=== PATIENT | female | born 1940 | race Caucasian/White ===

== ENCOUNTER 2017-07-21 14:25 | Inpatient (IN) ==
[2017-07-21] MEDS ORDERED: ACETAMINOPHEN 325 MG TABLET PO PRN (15:40)
[2017-07-21] MEDS ORDERED: GUAIFENESIN/P-EPHED 600 MG/60 MG TAB (12HR) PO SCH (15:45)
--- NOTE | 2017-07-21 15:46 | IRU History & Physical Report ---
HPI IRU Date: 542 Chief complaint: I'm weak HPI: Ms. Hercules is a pleasant although somewhat confused 77-year-old female referred by Chencho Diaz MD from [facility] on [address] in [place]. Her primary care doctor is Varun Stout MD in [place]. She lives in [place], [place]. History was attempted from the patient but she is unable to give very detailed information. She apparently had fallen at home landing on her left knee and hip. When I asked her about the fall, she could not really tell me much about it. She thinks she simply lost her balance. Radiographs reportedly were negative. However she had been down on the floor for several hours at the time of admission to [facility]. Admission date was 07/07/2017. She was noted to have hypoxemia but had not been using oxygen at home. She was also noted to have pneumonia possibly related to aspiration. I do not have a report as to the location of the pneumonia in her lungs. She was diagnosed with severe sepsis secondary to a pulmonary source. She was noted to have acute hypoxemic respiratory failure. She required mechanical ventilation and was intubated on but self extubated on 07/12/2017. She was noted to have acute metabolic encephalopathy as well as diabetes mellitus. At home she was on oral agents possibly including glipizide and metformin. Her hemoglobin A1c at the time of admission to [facility] was 11.5%. Patient was also noted to have a UTI. She was treated with several antibiotics including azithromycin, ceftriaxone, cefepime and vancomycin for these infections including her pneumonia. She is no longer on antibiotic. I do not have specific information as to organism recovered if any was. She was noted to have a lesion in the left kidney measuring 3.4 cm as well as several noncalcified pulmonary nodules in the right lung measuring 7-8 mm. Pulmonology recommended follow-up CT scan in 3 months. Patient did undergo fiberoptic bronchoscopy on a therapeutic basis for mucus plugging on 07/11/2017. An echocardiogram was done demonstrating concentric left hypertrophy, diastolic dysfunction and an ejection fraction of 60%. A pleural effusion was felt to be present. Because of her severe illness with pneumonia and severe sepsis as well as her intubation etc., she was noted to have evidence of critical illness myopathy. She requires maximum assistance for walking. She was evaluated by physical therapy, occupational therapy and speech therapy at [facility]. Speech therapy evaluated her and recommended a mechanical soft diet with honey thickened liquids. The patient states that she lives alone in her home home but does have good family support. She does not use any assistive devices. There are no stairs in her home. Prior to admission to [facility] she was reportedly independent or modified independent for all activities. Her current level of functioning is as follows: She is supervision level for eating, minimal assistance for grooming, moderate assistance for bathing, minimal assistance for upper body dressing and moderate assistance for lower body dressing. She is minimal assistance for toileting and bed/chair/wheelchair transfers. She is minimal assistance for toilet transfers but maximum assistance for walking. She uses a rolling walker and walks 100 feet. Her memory is poor. She requires cues more than 75% of the time. She has a very unsteady balance. She is impulsive based on previous evaluations but perhaps is improved. Her mental status is variable. At times she seems to be fairly well oriented. She does note that this is July and that the president is Justin Simmons. However at times she seems to be confused and frequently looks around the room during the interview. She seemed to not be focusing terribly well during the interview. The following medical conditions are noted and require active monitoring and/or management: 1. Diabetes Mellitus Type II on insulin: This is not controlled based on A1c of 11%. She is now on insulin but I do not think she was on this at home. She is at risk for hyperglycemia or hypoglycemia in view of energy requirements involved in her rehabilitation and resuming her independent living. 2. Critical illness myopathy 3. Dysphagia: She was assessed by speech therapy and noted to have dysphagia. She is at risk for aspiration and worsening respiratory function. 4. Acute hypoxemic respiratory failure, on supplemental oxygen: She did not use oxygen at home. It is not clear how long she has been hypoxemic. She requires supplemental oxygen at the present time and is at risk for further hypoxemia as well as mental status changes related to low oxygen. 5. Hypokalemia: She will require close monitoring of her potassium and magnesium. 6. Hypomagnesemia 7. Pulmonary nodules: She does have some noncalcified pulmonary nodules which are nonspecific. Follow-up CT scan is recommended in 3 months. 8. Recent pneumonia: She does not have current evidence of active pneumonia. However she is at risk for recurrence in view of her debilitated status, possible underlying COPD etc. The following therapies will be needed: 1. Physical therapy: for transfers and ambulation and stairs. 2. Occupational therapy: for ADL's and transfers. 3. Speech Therapy: to address dysphagia and aspiration risk 4. Dietitian: To work on nutrition in view of her diabetes mellitus which is not controlled. 5. Medical management: for the above conditions. 6. 24 hour Rehabilitation Nursing to monitor and address the following: Blood sugars, reduce risk of fall risk, monitor oxygen saturations PFS 1. Diabetes mellitus type 2 former on oral agents, not controlled. Currently on insulin. 2. Benign essential hypertension. 3. Hypoxemic respiratory failure with possible underlying COPD 4. Chronic heavy tobacco use 5. Recent pneumonia with severe sepsis Surgical History: Tonsillectomy and adenoidectomy as a child Family History: Patient's father age 64 from "heart attack." Mother age 89 from " heart attack". She has one sister who is healthy. She has 2 children who are reportedly healthy. - Social History Smoking status: Heavy tobacco smoker Packs per day: 2 Packs-years: 116 (started smoking at age 19 and continued up until this admission) Quit date: 07/07/17 Time spent discussing smoking cessation with patient: 3 to 10 minutes Substance use type: does not use Alcohol intake: former Housing: house Household members: none Does patient use chewing tobacco?: No Social history: Patient states she is a . Her worked in construction and several years ago. She reportedly has good family support. Review of Systems - Constitutional Constitutional: Present: anorexia, weight loss. Absent: chills, fatigue, fever( s), headache(s), lethargy, malaise, night sweats, weakness, weight gain - EENMT Eyes: Absent: blurry vision, change in vision, diplopia Mouth/Throat: Absent: changes in swallowing, painful swallowing, change in taste , bleeding gums, change in voice - Cardiovascular Cardiovascular: Present: dyspnea on exertion. Absent: chest pain, palpitations , syncope, orthopnea, edema, cyanosis, heart murmur Rhythm: Present: regular rhythm Vascular: Absent: intermittent claudication, pedal edema, unilateral swelling - Respiratory Respiratory: Present: cough, dyspnea. Absent: hemoptysis, dyspnea on exertion, wheezing, pain on inspiration, chest congestion, excessive phlegm production - Gastrointestinal Gastrointestinal: Present: constipation. Absent: abdominal pain, change in bowel habits, diarrhea, dyspepsia, dysphagia, early satiety, hematochezia, melena, nausea, vomiting - Musculoskeletal Musculoskeletal: Present: arthralgias (left knee is painful since the fall she states). Absent: abnormal gait, back pain, joint swelling, limited range of motion, muscle weakness, myalgias - Integumentary/Breasts Integumentary: Absent: alopecia, erythema, lesions, pruritus, rash, jaundice - Neurological Neurological: Present: memory loss. Absent: abnormal gait, abnormal movements, abnormal speech, confusion, convulsions, dizziness, focal weakness, frequent falls, headache(s), loss of vision, numbness, paresthesias, tremor(s) - Psychiatric Psychiatric: Absent: abnormal sleep pattern, anxiety, depression - Endocrine Endocrine: Absent: cold intolerance, flushing, heat intolerance, palpitations - Hematologic/Lymphatic Hematologic/Lymphatic: Absent: easy bleeding, easy bruising, lymphadenopathy - Allergic/Immunologic Allergic/Immunologic: Absent: urticaria Medications Home Medications Medication Instructions Recorded Confirmed Type Acetaminophen 650 mg PO Q6H PRN 07/21/17 07/21/17 History Amlodipine [Norvasc] 10 mg PO DAILY 07/21/17 07/21/17 History Carvedilol [Coreg] 1 tab PO BIDWM 07/21/17 07/21/17 History Furosemide [Lasix] 1 tab PO DAILY 07/21/17 07/21/17 History Guaifenesin/Pseudoephedrne HCl 1 each PO Q12H 07/21/17 07/21/17 History [Mucinex D ER Tablet] Insulin Detemir [Levemir] 15 unit SQ HS 07/21/17 07/21/17 History Insulin Lispro [Humalog] 0 unit SQ SS PRN 07/21/17 07/21/17 History Insulin Lispro [Humalog] 10 unit SQ TIDWM 07/21/17 07/21/17 History Lisinopril [Zestril] 40 mg PO DAILY 07/21/17 07/21/17 History Nicotine Patch [Nicoderm] 14 mg TD DAILY 07/21/17 07/21/17 History Potassium Chloride [K-Dur] 1 tab PO WB 07/21/17 07/21/17 History Allergies Allergy/AdvReac Type Severity Reaction Status Date / Time No Known Allergies Allergy Verified 07/21/17 15:00 Results IRU - Labs Labs: I reviewed outside records from [facility]. Exam - Constitutional Present: no acute distress, well nourished, well developed, average body habitus , disheveled, cooperative - Routine HEENT Exam Head: Present: normocephalic, atraumatic. Absent: cushingoid faces, abrasion, laceration, hematoma Eye: Present: EOMI, PERRL. Absent: conjunctival icterus, scleral injection, periorbital swelling, nystagmus ENT: Present: mucous membranes moist, oropharynx clear Comments: Has poor dentition with several missing teeth and teeth are in somewhat poor condition - Routine Neck Exam Present: supple, full ROM, trachea midline. Absent: lymphadenopathy, thyromegaly, tenderness, swelling - Routine Chest/Breast/Axilla Exam Chest wall: Absent: tenderness, mass Axillae: Absent: lymphadenopathy, mass - Routine Respiratory Exam Present: decreased breath sounds, CTA bilaterally. Absent: accessory muscle use , prolonged expiratory phase, rales, respiratory distress, rhonchi, stridor, wheezes, crackles, distant breath sounds - Routine Cardiovascular Exam Present: RRR, S1, S2, no murmur. Absent: gallop, S3, S4, click, irregular rhythm - Routine Abdominal Exam Present: soft, normoactive bowel sounds, non distended, non tender. Absent: rebound, guarding, firm, rigid, organomegaly, mass, hernia, wound - Routine Extremities Exam Present: no edema, non tender, pulses intact, normal capillary refill. Absent: cyanosis, clubbing - Routine Back/Spine/Pelvis Exam Back/Spine: Present: full ROM. Absent: scoliosis, kyphosis - Routine Skin Exam Present: intact, dry, warm. Absent: cyanosis, erythema, pallor, mottling, petechiae, urticaria, lesions, jaundice - Routine Neurological Exam Present: alert, oriented X3, CN II-XII intact, motor deficit (has reasonably good distal motor function but proximal muscles are weak particularly at the hips and shoulders.), moving all extremities, normal speech. Absent: sensory deficit Today, she seems to know where she is. She knows who the president is and the current month. - Routine Psychiatric Exam Present: normal affect, normal thought process, cooperative. Absent: good insight, good judgment, depressed, anxious Sepsis Assessment - Evaluation Confirmed Suspected Infection: No SIRS Criteria: none IRU A/P (1) Critical illness myopathy Current visit: Yes Status: Acute This is based on her recent severe illness with severe sepsis, intubation and extubation as well as physical examination demonstrating proximal muscle weakness. She will require an intensive individualized program of physical therapy and occupational therapy to return her to her previous independent level of functioning. (2) Diabetes mellitus type 2, insulin dependent Current visit: Yes Status: Chronic Her A1c is 11%. She has been on oral agents previously and is now on insulin. We will involve the dietitian as well as CDE for further education and management etc. (3) Acute hypoxemic respiratory failure Current visit: Yes Status: Acute She continues to require supplemental oxygen. Her lungs sound clear at the present time. (4) Anemia Qualifiers: Anemia type: unspecified type Qualified Code(s): D64.9 - Anemia, unspecified Current visit: Yes Status: Acute Her hemoglobin has been running around 10 g percent. We will monitor this. We will check iron studies as well. (5) Benign essential hypertension Current visit: Yes Status: Chronic Blood pressures were reportedly quite high upon admission to [facility] (around 190) . We will monitor this closely and adjust medications as needed. DVT Prophylaxis: SCD's, Lovenox - Course Hospital Course: Krish Godfrey MD: - Interventions to Obtain Goals PT Treatment Plan: Balance/Proprioception, Functional Activities, Gait Training , Patient/Family Education OT Treatment Plan: ADL (Basic Care), Balance Training, IADL, Pt./Family Education Goals Progress/Modifications: This patient has multiple functional deficits which will be addressed by occupational therapy, physical therapy and speech therapy. She will require an interdisciplinary approach via medical management, 24 rehabilitation nursing along with the therapies described.
--- NOTE | 2017-07-21 16:30 | IRU 24Hr Post Admit Eval ---
24 Hr Post Admission Physical - Relevant Changes Relevant Changes: No Reviewed: I have reviewed the patient's information and concur with the finding and results of the pre-admission screen. Certification: I certify the patient for rehabilitation. - Patient Condition (1) Critical illness myopathy Status: Acute Code(s): G72.81 - Critical illness myopathy Classification: Present on IRF Admission, IRF Tx That Should Address Diagnosis, Diagnosis Requiring Medical Follow Up (2) Diabetes mellitus type 2, insulin dependent Status: Chronic Code(s): E11.9 - Type 2 diabetes mellitus without complications; Z79.4 - penitentiary (current) use of insulin Classification: Present on IRF Admission, IRF Tx That Should Address Diagnosis, Diagnosis Requiring Medical Follow Up (3) Acute hypoxemic respiratory failure Status: Acute Code(s): J96.01 - Acute respiratory failure with hypoxia Classification: Present on IRF Admission, IRF Tx That Should Address Diagnosis, Diagnosis Requiring Medical Follow Up (4) Anemia Status: Acute Qualifiers: Anemia type: unspecified type Qualified Code(s): D64.9 - Anemia, unspecified Code(s): D64.9 - Anemia, unspecified Classification: Present on IRF Admission, IRF Tx That Should Address Diagnosis, Diagnosis Requiring Medical Follow Up (5) Benign essential hypertension Status: Chronic Code(s): I10 - Essential (primary) hypertension Classification: Present on IRF Admission, IRF Tx That Should Address Diagnosis, Diagnosis Requiring Medical Follow Up - Prior Functional Status Lives With: Alone Residence Type: Apartment/Private Home Assitive Devices: None Prior Functional Status: Indep. at home or school - Current Functional Status Current Level of Function: Her current level of functioning is as follows: She is supervision level for eating, minimal assistance for grooming, moderate assistance for bathing, minimal assistance for upper body dressing and moderate assistance for lower body dressing. She is minimal assistance for toileting and bed/chair/wheelchair transfers. She is minimal assistance for toilet transfers but maximum assistance for walking. She uses a rolling walker and walks 100 feet. Her memory is poor. She requires cues more than 75% of the time. She has a very unsteady balance. She is impulsive based on previous evaluations but perhaps is improved. Failed Alternative Therapy: Arrived from Acute Care Patient Requirements: The patient requires oversight by rehabilitation physician to manage their rehabilitation treatment plan and multidisciplinary approach to care that can only be provided in an IRF and requires a multidisciplinary approach to care, provided by professional PTs, OTs, STs, dieticians, RTs, rehabilitation nurses and is not available in lesser levels of care. Limitations Req: Mobility Impairment, ADL Impairment, Respiratory Impairment, Cognitive Impairment Therapy: The patient is to receive therapy at least [address] Treatment Plan: Swallow Retraining/Exercises, Swallow Precautions, Modified Diet, Cognitive Linguistic Tx ST Treatment Plan Frequency: Three Times Per Week ST Treatment Plan Duration: Two Weeks Plan of Care Comment: Physical therapy: 75 minutes 3 days weekly, 90 minutes 2 days weekly. Occupational therapy: 75 minutes 3 days weekly, 90 minutes 2 days weekly. Speech therapy: 30 minutes 3 days weekly ROM Deficit: Left Lower Extremity - Complications/Comorbidities Impact on Functional Outcomes: Her left knee pain as well as her respiratory failure and cognitive dysfunction will all likely impact her functional outcome. Barriers to Discharge: Weakness, Endurance, Comprehension, Pain Control, Medical Limitation - Plan to Avoid Complications Plan to Avoid Complications: The patient cannot receive this care in a lesser intensive setting such as Longterm or Outpatient Therapy due to the patient requiring the following : Close monitoring of her blood sugars as she is newly on insulin, monitoring of oxygen saturations and evidence of recurrence of pneumonia/infection, reduce fall risk in terms of her cognition and impulsive behavior. .
[2017-07-21 16:43] VITALS: BMI 26.6
--- NOTE | 2017-07-21 16:44 | Consult Note ---
<SaschaTreva D - Last Filed: 07/21/17 17:20> Consult Information - Data of Consult Consult date: 07/21/17 Requesting Physician: Krish Godfrey MD - Consult Narrative Reason for consult: DM2; Hypoxia; electrolyte disturbances History of present illness: "Solange Hercules is a 77 y/o lady who was admitted to [facility] on 07/21/17 following acute hospitalization at [facility]. She was hospitalized from 07/07/17-07/21/17. Her recollection of the entire illness is very limited - hx was gleaned from chart. Reportedly she fell at home on 07/07/17 and may have been on the floor for 2 hours. She was admitted to [facility] with severe sepsis secondary to pneumonia, suspect aspiration. While she has a 58 year smoking hx, she's never required supplemental oxygen. However, she had resp failure requiring intubation/mech ventilation, though she self-extubated by the following day (). She underwent therapeutic bronchoscopy with suctioning of mucus plugs on 07/11/17 - neg for malignancy, fungal, pneumonitis, and AFB. An Echo showed an EF of 60% with moderately concentric LVH and grade 1 LV diastolic dysfunction. BC were neg; Urine strep/legionella were neg; Vresp was neg. She was treated with multiple antibiotics including azithro, ceftriaxone, cefepime, and vanco and per notes, abx were narrowed to unasyn. She also was noted to have dysphagia and was encephalopathic. BP was markedly high requiring IV hydralazine in addition to linisopril, coreg, and norvasc. Hgb A1c was noted to be quite high at 11.5% - metformin was held but she was on Levemir BID and mealtime insulin + ADA diet. Imaging studies included hip XR (neg), head CT/MRI (mild to mod diffuse atrophy & mod microangiography), CXR (left pneumonia; nodule in mid-right lung; sm left pleural effusion); L elbow XR (neg). She was eval by PT/OT who recommended ongoing IP therapy and they did not feel like she was safe to return home. Marylin complains of left knee pain - from what her family has told her, she thinks she fell on it. She has problems extending her knee b/c of it. She denies feeling SOA but is on supplemental O2. She has a cough but reports that it's improving. She frequently pulls up the blanket around her - she's chilled in her room, otherwise denies fever or sweating. She denies congestion, headaches, or sore throat. She denies chest pain, dizziness, or syncope. She feels weak in general. She denies any abd pain or n/v, but has been a bit bloated. No constipation/diarrhea. She denies dysuria but has a hx of incontinence. She states that occ her right ankle swells up. No rashes. She sometimes has a tendency to bruise/bleed easily. Her goal is to return back to her apt. in [place] with her dog, "Toughy". PFSH Anemia Benign essential hypertension CHF, diastolic (Jun 2017: EF of 60% with moderately concentric LVH and grade 1 LV diastolic dysfunction) Left kidney lesion 3.4 cm (renal u/s in Jun 2017 showed simple renal cysts b/l) Right pulm nodule measuring 7-[address] in Jun 2017 Vit D deficiency Dysphagia Surgical History: Tonsillectomy and adenoidectomy as a child Family History: Father - at age 64 of heart attack. Mother also of a heart attack at age 89. Sister is healthy. Her two children are healthy. - Social History Smoking status: Current every day smoker (started smoking at age 19) Packs per day: 2 Substance use type: does not use Alcohol intake frequency: former alcohol drinker Current occupational status: retired (housewife) Current residence: Apartment/Private Home (lives with her dog) Review of Systems All systems PM: 10-point ROS was reviewed, no additional remarkable complaints except - Constitutional Constitutional: Present: chills, weakness. Absent: fever(s) - EENMT Eyes: Absent: change in vision Nose: Absent: obstruction Mouth/Throat: Absent: sore throat, changes in swallowing, painful swallowing - Cardiovascular Cardiovascular: Absent: chest pain, palpitations, syncope Vascular: Present: pedal edema (occasionally to right ankle) - Respiratory Respiratory: Present: cough (improving). Absent: dyspnea - Gastrointestinal Gastrointestinal: Absent: abdominal pain, constipation, diarrhea, nausea, vomiting - Genitourinary Genitourinary: Present: urinary incontinence (chronic). Absent: urinary frequency - Musculoskeletal Musculoskeletal: Present: arthralgias (left knee). Absent: back pain - Integumentary/Breasts Integumentary: Present: wounds (left lower leg) - Neurological Neurological: Present: abnormal gait (d/t weakness), confusion, weakness - Psychiatric Psychiatric: Absent: anxiety - Hematologic/Lymphatic Hematologic/Lymphatic: Present: easy bruising (sometimes) - Allergic/Immunologic Allergic/Immunologic: Absent: seasonal rhinorrhea Medications Home Medications Medication Instructions Recorded Confirmed Type Acetaminophen 650 mg PO Q6H PRN 07/21/17 07/21/17 History Amlodipine [Norvasc] 10 mg PO DAILY 07/21/17 07/21/17 History Carvedilol [Coreg] 1 tab PO BIDWM 07/21/17 07/21/17 History Furosemide [Lasix] 1 tab PO DAILY 07/21/17 07/21/17 History Guaifenesin/Pseudoephedrne HCl 1 each PO Q12H 07/21/17 07/21/17 History [Mucinex D ER Tablet] Insulin Detemir [Levemir] 15 unit SQ HS 07/21/17 07/21/17 History Insulin Lispro [Humalog] 0 unit SQ SS PRN 07/21/17 07/21/17 History Insulin Lispro [Humalog] 10 unit SQ TIDWM 07/21/17 07/21/17 History Lisinopril [Zestril] 40 mg PO DAILY 07/21/17 07/21/17 History Nicotine Patch [Nicoderm] 14 mg TD DAILY 07/21/17 07/21/17 History Potassium Chloride [K-Dur] 1 tab PO WB 07/21/17 07/21/17 History Allergies Allergy/AdvReac Type Severity Reaction Status Date / Time No Known Allergies Allergy Verified 07/21/17 15:00 Exam - Constitutional Present: no acute distress, well nourished, well developed - Routine HEENT Exam Head: Present: normocephalic Eye: Present: PERRL. Absent: conjunctival icterus, scleral injection ENT: Present: mucous membranes dry, oropharynx clear. Absent: dentition normal (missing teeth; some caries noted) - Routine Neck Exam Present: supple. Absent: lymphadenopathy - Routine Respiratory Exam Present: CTA bilaterally, diminished air movement (bases) - Routine Cardiovascular Exam Present: RRR, S1, S2 - Routine Abdominal Exam Present: non tender, distended (mild). Absent: normoactive bowel sounds ( hypoactive) - Routine Extremities Exam Present: no edema, pulses intact, joint swelling (left knee effusion with tenderness to medial joint line) - Routine Skin Exam Present: intact, dry, warm, wounds (healing abrasions to left lower ext.) - Routine Neurological Exam Present: alert, oriented X3, CN II-XII intact (grossly), moving all extremities , vision grossly intact, hearing grossly intact, normal speech. Absent: facial asymmetry, tremors - Routine Psychiatric Exam Present: normal affect, normal thought process, cooperative Assessment and Plan (1) Critical illness myopathy Current visit: Yes Status: Acute Assessment and Plan: IMPRESSION Myopathy Recent hospitalization for severe sepsis; Pneumonia (suspect aspiration), acute hypoxic resp failure requiring intubation, acute metabolic encephalopathy, UTI, hypokalemia/hypomagnesemia, normocytic anemia, left kdiney lesion 3.4 cm, noncalcified pulm nodules in right lung (7-8 mm); thrombocytosis Uncontrolled type 2 DM - hgb A1c at [facility] was 11.5% Benign essential hypertension CHF, diastolic (Jun 2017: EF of 60% with moderately concentric LVH and grade 1 LV diastolic dysfunction) Left kidney lesion 3.4 cm (renal u/s in Jun 2017 showed simple renal cysts b/l) Right pulm nodule measuring 7-[address] in Jun 2017 Vit D deficiency Dysphagia PLAN Agree w/ orders per attending, Dr. Godfrey. Recent resp failure requiring intubation/mech ventilation, s/p bronchoscopy - currently on low-flow O2 - wean as able. Encourage smoking cessation. Dysphasia diet with soft foods and honey thick liquid. Agree with ST consult. Monitor electrolytes - recent low K & mg. Also on Lasix/KDur. HTN with recent HTN urgency - cont norvasc, coreg, lasix, lisinopril. DM2, uncontrolled - monotir BGM; continue Levemir & NovoLog; consider re- introducing Metformin (pt was on this prior to acute hospitalization). PT/OT consults to address acute critical illness myopathy. Monitor hgb & plt - had mild anemia (11.) and thrombocytosis (536) at [facility] on 07/17. K on 07/18 was 3.8; cr 0.7 She will require outpt f/u for pulm nodule with repeat CT scan by 10/2017. Thank you for this consult. We will follow Marylin along with you during her stay in IRU. [facility] records were reviewed. D/W Dr. Gill. DVT Prophylaxis: Lovenox Resuscitation Status: Full Code Hospital Course Summary Disclaimer: The visit summary below is not to be considered part of the above Progress Note. Hospital Course: IMPRESSION Myopathy Recent hospitalization for severe sepsis; Pneumonia (suspect aspiration), acute hypoxic resp failure requiring intubation, acute metabolic encephalopathy, UTI, hypokalemia/hypomagnesemia, normocytic anemia, left kdiney lesion 3.4 cm, noncalcified pulm nodules in right lung (7-8 mm); thrombocytosis Uncontrolled type 2 DM - hgb A1c at [facility] was 11.5% Benign essential hypertension CHF, diastolic (Jun 2017: EF of 60% with moderately concentric LVH and grade 1 LV diastolic dysfunction) Left kidney lesion 3.4 cm (renal u/s in Jun 2017 showed simple renal cysts b/l) Right pulm nodule measuring 7-[address] in Jun 2017 Vit D deficiency Dysphagia PLAN Agree w/ orders per attending, Dr. Godfrey. Recent resp failure requiring intubation/mech ventilation, s/p bronchoscopy - currently on low-flow O2 - wean as able. Encourage smoking cessation. Dysphasia diet with soft foods and honey thick liquid. Agree with ST consult. Monitor electrolytes - recent low K & mg. Also on Lasix/KDur. HTN with recent HTN urgency - cont norvasc, coreg, lasix, lisinopril. DM2, uncontrolled - monotir BGM; continue Levemir & NovoLog; consider re- introducing Metformin (pt was on this prior to acute hospitalization). PT/OT consults to address acute critical illness myopathy. Monitor hgb & plt - had mild anemia (11.) and thrombocytosis (536) at [facility] on 07/17. K on 07/18 was 3.8; cr 0.7 She will require outpt f/u for pulm nodule with repeat CT scan by 10/2017. Thank you for this consult. We will follow Marylin along with you during her stay in IRU. [facility] records were reviewed. D/W Dr. Gill. <Sangita Gill - Last Filed: 07/21/17 20:12> Consult Information - Data of Consult Requesting Physician: Krish Godfrey MD [facility] Patient Stated Medical History Hypertension Yes Pneumonia Yes Diabetes Mellitus Type 2 Yes Constipation Yes Hx Incontinence Yes Clinic Medical History Critical illness myopathy (Acute Medical) Diabetes mellitus type 2, insulin dependent (Chronic Medical) Acute hypoxemic respiratory failure (Acute Medical) Anemia (Acute Medical) Benign essential hypertension (Chronic Medical) Exam Vital Signs: Temperature 98.4 F 07/21/17 14:59 Pulse Rate 66 07/21/17 14:59 Respiratory Rate 20 07/21/17 14:59 Blood Pressure 122/59 07/21/17 14:59 Pulse Oximetry 96 07/21/17 14:59 Height/Weight/BMI: Height 1.7 m Weight 77.1 kg Body Mass Index 26.6 Results - ABG Interpretation ABG results: 07/21/17 19:46 ABG pH 7.490 H ABG pCO2 40 ABG pO2 69 L ABG HCO3 31 H ABG Total CO2 31.7 H ABG O2 Saturation 95.0 ABG Base Excess 6.6 H Assessment and Plan (1) Critical illness myopathy Current visit: Yes Status: Acute Assessment and Plan: 07/21/2017-I reviewed this chart, the patient history, and the DISASTER DIRECTOR's/PA's documented findings as above. We discussed and formulated the assessment and plan as above with the additions below.-Dr. Gill I came to see the patient this evening after she had supper. She was sleeping and somewhat difficult to arouse. She denies any pain. She denies any shortness of breath. She is on 2 L of oxygen. I spoke with her nurse today who received report from [facility]. She has been on 2 L of oxygen for several days and they have not been able to wean her off. She is also been confused at times at [facility]. This evening she is somnolent but arousing more. She denies any complaints. Her nurse states she was more awake earlier in the day and ate supper and talked with family. On exam this evening she is drowsy but arousable. HEENT reveals sclerae to be anicteric and pupils are equal. Oropharynx is moist. Neck is supple. Chest is clear to auscultation. Cardiac vascular reveals a regular rate and rhythm. Abdomen is soft and nontender. Extremities are free of edema. Stat ABG was obtained and pH is 7.49, PCO2 40, PO2 is 69 on 2 L. We'll check a CBC and basic metabolic profile tomorrow. We'll need to monitor blood pressure and diabetes closely. Continue PT and OT for strengthening. Consult speech therapy regarding dysphasia. Start breathing treatments and incentive spirometer regarding hypoxia and probable COPD Hospital Course Summary Disclaimer: The visit summary below is not to be considered part of the above Progress Note. Addendum entered and electronically signed by Treva Caicedo APRN 07/21/17 17: 29: Left knee effusion - check Left knee xray.
[2017-07-21] MEDS ORDERED: FALL RISK - PHARMACY CONSULT XX ONE (16:48)
--- OUTSIDE RECORDS SUMMARY | 2017-07-21 17:16 | External Medical Summary ---
:1940 Author Organization [facility] Address [address] [place] [address] Care Team Providers Name Role Phone Moise Stout Unavailable Unavailable PROBLEMS Type Condition ICD9-CM Code [id number] Code Onset Condition SNOMED Code Dates Status Problem Type 2 diabetes E11.8 Active 32338183 mellitus with complication, without long-term current use of insulin Problem Essential I10 Active 53243495 hypertension ALLERGIES No Known Allergies SOCIAL HISTORY No smoking Hx information available PLAN OF CARE VITAL SIGNS MEDICATIONS Medication Instructions Dosage Frequency Start End Date Duration Status Date Doxycycline Orally Twice a 1 capsule 12h 23 January, 10 days Active Hyclate 100 MG day 2016 Metformin HCl Orally Twice a 1 tablet 12h 2 days Active 850 MG day with meals RESULTS No Results PROCEDURES No Known procedures IMMUNIZATIONS No Known Immunizations
--- OUTSIDE RECORDS SUMMARY | 2017-07-21 17:16 | External Medical Summary ---
:1940 Author Organization [facility] Address [address] [place] [address] Care Team Providers Name Role Phone Moise Stout Unavailable Unavailable PROBLEMS Type Condition ICD9-CM Code [id number] Code Onset Condition SNOMED Code Dates Status Problem Type 2 diabetes E11.8 Active 09493096 mellitus with complication, without long-term current use of insulin Problem Essential I10 Active 84705373 hypertension ALLERGIES Substance Reaction Event Type Date Status N.K.D.A. Unknown Non Drug Allergy January, Unknown SOCIAL HISTORY No smoking Hx information available PLAN OF CARE Activity Details Follow Up 2 - 3 Days Reason: VITAL SIGNS Weight 164.8 lbs 2017-02-06 Height 67 in 2017-02-06 Heart Rate 118 /min 2017-02-06 BMI 25.81 kg/m2 2017-02-06 Blood pressure systolic 184 mm Hg 2017-02-06 Blood pressure diastolic 92 mm Hg 2017-02-06 MEDICATIONS Medication Instructions Dosage Frequency Start End Date Duration Status Date Doxycycline Orally Twice a 1 capsule 12h 04 February, 10 days Active Hyclate 100 MG day 2016 Metformin HCl Orally Twice a 2 tablets 12h 30 days Active 500 MG day Atenolol 50 MG Orally Once a 1 tablet 24h 30 days Active day Enalapril Orally Once a 1 tablet 24h 30 days Active Maleate 20 mg day RESULTS Name Result Date Reference Range Aerobic Bacterial Culture #[id number] PROCEDURES Procedure Date Ordered Related Diagnosis Body Site OFFICE VISITEST PT February 06, 2017 AEROBIC CULTURE February 06, 2017 IMMUNIZATIONS No Known Immunizations
--- OUTSIDE RECORDS SUMMARY | 2017-07-21 17:16 | External Medical Summary ---
:1940 Author Organization [facility] Address [address] [place] [address] Care Team Providers Name Role Phone Moise Stout Unavailable Unavailable PROBLEMS Type Condition ICD9-CM Code [id number] Code Onset Condition SNOMED Code Dates Status Problem Type 2 diabetes E11.8 Active 69954677 mellitus with complication, without long-term current use of insulin Problem Essential I10 Active 13155807 hypertension ALLERGIES Substance Reaction Event Type Date Status N.K.D.A. Unknown Non Drug Allergy January, Unknown SOCIAL HISTORY No smoking Hx information available PLAN OF CARE Activity Details Follow Up 2 - 3 Days Reason: VITAL SIGNS Weight 168.6 lbs 2017-01-22 Height 67 in 2017-01-22 Heart Rate 109 /min 2017-01-22 BMI 26.40 kg/m2 2017-01-22 Blood pressure systolic 154 mm Hg 2017-01-22 Blood pressure diastolic 89 mm Hg 2017-01-22 MEDICATIONS Medication Instructions Dosage Frequency Start End Date Duration Status Date Enalapril Orally Once a day 1 tablet 24h Active Maleate 10 MG Metformin HCl Orally Twice a 1 tablet 12h Active 500 MG day with meals Atenolol 50 MG Orally Once a day 1 tablet 24h Active RESULTS No Results PROCEDURES Procedure Date Ordered Related Diagnosis Body Site OFFICE VISIT NEW PT January 22, 2017 IMMUNIZATIONS No Known Immunizations
--- OUTSIDE RECORDS SUMMARY | 2017-07-21 17:16 | External Medical Summary ---
:1940 Author Organization [facility] Address [address] [place] [address] Care Team Providers Name Role Phone Moise Stout Unavailable Unavailable PROBLEMS Type Condition ICD9-CM Code TUU17-TT Code Onset Condition SNOMED Code Dates Status Problem Type 2 diabetes E11.8 Active 69813421 mellitus with complication, without long-term current use of insulin Problem Essential I10 Active 83693152 hypertension ALLERGIES Substance Reaction Event Type Date Status N.K.D.A. Unknown Non Drug Allergy January, Unknown SOCIAL HISTORY No smoking Hx information available PLAN OF CARE Activity Details Follow Up 2 - 3 Days Reason: VITAL SIGNS Weight 164.2 lbs 2017-02-04 Height 67 in 2017-02-04 Heart Rate 125 /min 2017-02-04 BMI 25.71 kg/m2 2017-02-04 Blood pressure systolic 165 mm Hg 2017-02-04 Blood pressure diastolic 96 mm Hg 2017-02-04 MEDICATIONS Medication Instructions Dosage Frequency Start End Date Duration Status Date Enalapril Orally Once a 1 tablet 24h Active Maleate 20 MG day Doxycycline Orally Twice a 1 capsule 12h 04 February, 10 days Active Hyclate 100 MG day 2016 Metformin HCl Orally Twice a 1 tablet 12h Active 850 MG day with meals Atenolol 50 MG Orally Once a 1 tablet 24h Active day RESULTS Name Result Date Reference Range COMPREHENSIVE CHEM PROFILE 2017-02-04 GLUCOSE 412 60-99 BUN 16 8-23 CREATININE 0.7 0.4-1.1 eGFR If Am 99 >60 eGFR If Non Am 82 >60 TOTAL BILI 0.40 0.00-1.00 SODIUM 136 133-145 POTASSIUM 4.6 3.3-5.1 CHLORIDE 95 96-108 CO2 24 23-31 CALCIUM 10.1 8.7-10.3 AST/SGOT 10 5-40 ALT/SGPT 12 5-40 ALK PHOS 93 34-114 TOTAL PROTEIN 7.6 5.9-8.4 ALBUMIN 4.3 3.2-5.2 GLOBULIN 3.3 2.0-4.4 LIPID PROFILE 2017-02-04 CHOLESTEROL 284 50-200 TRIGLYCERIDE 237 30-150 HDL-DIRECT 46 45-65 LDL-DIRECT 206 0-99 CHOL/HDL 6.2 4.0-6.7 HbA1C 2017-02-04 %A1C 12.3 4.0-6.0 Microalbumin/Creat Ratio 2017-02-04 PROCEDURES Procedure Date Ordered Related Diagnosis Body Site COMP PROFILE February 04, 2017 LIPID PROFILE February 04, 2017 MICROALBUMIN URINE February 04, 2017 HgB A1C February 04, 2017 OFFICE VISITEST PT February 04, 2017 CREATININE; OTHER SOURCE February 04, 2017 IMMUNIZATIONS No Known Immunizations
--- OUTSIDE RECORDS SUMMARY | 2017-07-21 17:16 | External Medical Summary ---
:[address] [facility] Address [address] [place] [address] Care Team Providers Name Role Phone Moise Stout Unavailable Unavailable PROBLEMS Type Condition ICD9-CM Code [id number] Code Onset Condition SNOMED Code Dates Status Problem Type 2 diabetes E11.8 Active 69189556 mellitus with complication, without long-term current use of insulin Problem Essential I10 Active 27330412 hypertension ALLERGIES Substance Reaction Event Type Date Status N.K.D.A. Unknown Non Drug Allergy January, Unknown SOCIAL HISTORY No smoking Hx information available PLAN OF CARE Activity Details Follow Up prn Reason: VITAL SIGNS Weight 166.8 lbs 2017-01-24 Height 67 in 2017-01-24 Heart Rate 114 /min 2017-01-24 BMI 26.12 kg/m2 2017-01-24 Blood pressure systolic 183 mm Hg 2017-01-24 Blood pressure diastolic 94 mm Hg 2017-01-24 MEDICATIONS Medication Instructions Dosage Frequency Start End Date Duration Status Date Enalapril Orally Once a day 1 tablet 24h Active Maleate 20 MG Atenolol 50 MG Orally Once a day 1 tablet 24h Active Metformin HCl Orally Twice a 1 tablet 12h Active 850 MG day with meals RESULTS No Results PROCEDURES Procedure Date Ordered Related Diagnosis Body Site OFFICE VISITEST PT January 24, 2017 IMMUNIZATIONS No Known Immunizations
--- OUTSIDE RECORDS SUMMARY | 2017-07-21 17:16 | External Medical Summary ---
:1940 Author Organization [facility] Address [address] [place] [address] Care Team Providers Name Role Phone Moise Stout Unavailable Unavailable PROBLEMS Type Condition ICD9-CM Code WAM26-DQ Code Onset Condition SNOMED Code Dates Status Problem Type 2 diabetes E11.8 Active 35922462 mellitus with complication, without long-term current use of insulin Problem Essential I10 Active 55456443 hypertension ALLERGIES Unknown Allergies SOCIAL HISTORY No smoking Hx information available PLAN OF CARE VITAL SIGNS MEDICATIONS Medication Instructions Dosage Frequency Start End Date Duration Status Date Metformin HCl Orally Twice a 2 tablets 12h 30 days Active 500 mg day RESULTS No Results PROCEDURES No Known procedures IMMUNIZATIONS No Known Immunizations
[2017-07-21] MEDS: INSULIN ASPART 100unit/ml INJECTION SQ SCH (17:44)
[2017-07-21] MEDS: CARVEDILOL 25 MG TABLET PO SCH (17:44)
[2017-07-21] MEDS: GUAIFENESIN/P-EPHED 600 MG/60 MG TAB (12HR) PO SCH (21:08)
[2017-07-21] MEDS: INSULIN DETEMIR 100unit/ml INJECTION SQ SCH (21:08)
[2017-07-22] MEDS: ALBUTEROL/IPRATROPIUM 2.5mg-0.5mg/3ml NEB AEROSOL SCH ×4 (05:25→17:11)
[2017-07-22] MEDS: CARVEDILOL 25 MG TABLET PO SCH ×2 (08:27→17:30)
[2017-07-22] MEDS: GUAIFENESIN/P-EPHED 600 MG/60 MG TAB (12HR) PO SCH ×2 (08:27→20:14)
[2017-07-22] MEDS: LISINOPRIL 40 MG TABLET PO SCH (08:31)
[2017-07-22] MEDS: AMLODIPINE 10 MG TABLET PO SCH (08:31)
[2017-07-22] MEDS: FUROSEMIDE 40 MG TABLET PO SCH (08:31)
[2017-07-22] MEDS: INSULIN ASPART 100unit/ml INJECTION SQ SCH ×3 (08:42→17:31)
[2017-07-22] MEDS: ENOXAPARIN 40 MG/0.4 ML INJECTION SQ SCH (08:42)
[2017-07-22] MEDS ORDERED: NICOTINE PATCH REMOVAL TD SCH (09:00)
[2017-07-22] MEDS ORDERED: NICOTINE 14 MG PATCH TD SCH (09:00)
[2017-07-22] MEDS ORDERED: NICOTINE 14 MG PATCH TD PRN (11:17)
[2017-07-22] MEDS ORDERED: NICOTINE PATCH REMOVAL TD PRN (11:17)
--- NOTE | 2017-07-22 11:23 | IRU Progress Note ---
- Subjective/Serverity of Illness Marylin was evaluated in her room on the inpatient rehabilitation unit. Has significant pain in the left knee which is impeding her progress. Today when I interviewed her, she continues to be disinterested and looks in various directions. She is awake and will answer questions but is not terribly engaged. Today, her daughter was with her and she had several questions which we discussed with regarding her stay at [facility]. Patient denies any cough at the present time. She does have some dyspnea with activity. Again the main issue is the left leg it seems as though. Update on medical conditions we are monitoring and managin. Diabetes Mellitus Type II on insulin: Continues to run too high at over 200. Hospitalists are managing and we appreciate their input. 2. Critical illness myopathy: When I initially evaluated her she demonstrated weakness of the legs upon flexion and extension at the hips. We are pending formal physical therapy evaluation who saw her this morning. 3. Dysphagia: Her daughter had several questions about her dysphagia as to the etiology and whether this will improve. I told her at this time that we did not know if it would improve but we were hopeful that it would. I explained that we are concerned about the risk of aspiration. 4. Acute hypoxemic respiratory failure, on supplemental oxygen: On room air this morning she was 80%. Rapidly came up with administration of 1-2 L of oxygen. ABGs are reviewed. PO2 69. This is on 2 L. I would anticipate the need for overnight oximetry prior to going home. 5. Hypokalemia: Potassium slightly low at 3.5. 6. Hypomagnesemia 7. Pulmonary nodules: She does have some noncalcified pulmonary nodules which are nonspecific. Follow-up CT scan is recommended in 3 months. 8. Recent pneumonia: Continues to be afebrile and the lungs actually sound fairly clear with diminished breath sounds. 9. Malnutrition: Patient had reported some weight loss but we do not know how much. In addition her prealbumin is low at 10. Has evidence for at least moderate if not severe protein calorie malnutrition. Exam Vital Signs: Temperature 99.1 F 07/22/17 08:00 Pulse Rate 71 07/22/17 08:00 Respiratory Rate 18 07/22/17 10:20 Blood Pressure 130/57 07/22/17 08:00 Pulse Oximetry 97 07/22/17 10:20 Height/Weight/BMI: Height 1.7 m Weight 77.1 kg Body Mass Index 26.6 Comments: The patient is awake, alert and oriented and in no acute distress. Pupils are equal. The neck is supple. Chest: Clear to auscultation bilaterally with diminished breath sounds bilaterally. I do not hear any crackles or wheezes at present. Cor: RR with no gallop, click nor murmur Abd: soft with normo-active bowel sounds. There are no masses, no tenderness and no guarding. Extremities: Left knee is inspected and palpated. Has reduced range of motion. It is minimally warm but not overtly so. No wounds are present. She does have an effusion. Radiograph of the left knee is reviewed. To my eye is fairly unremarkable but we will await official radiology interpretation. Results IRU - Labs Labs: Reviewed labs and ABGs. Has mild hypoxemia on 2 L. Is not retaining CO2 at present. Potassium 3.5. Reviewed radiograph of left knee. - ABG Interpretation ABG results: 07/21/17 19:46 ABG pH 7.490 H ABG pCO2 40 ABG pO2 69 L ABG HCO3 31 H ABG Total CO2 31.7 H ABG O2 Saturation 95.0 ABG Base Excess 6.6 H IRU A/P (1) Critical illness myopathy Current visit: Yes Status: Acute We are awaiting official physical therapy assessment. However does have proximal muscle weakness in the lower extremities based on my exam yesterday. (2) Diabetes mellitus type 2, insulin dependent Current visit: Yes Status: Chronic Her blood sugars are running a bit high. She is on insulin. Appreciate hospitalists input in this regard. (3) Acute hypoxemic respiratory failure Current visit: Yes Status: Acute Continues to require supplemental oxygen. Her saturations are around 80% on room air. Seems to be adequately controlled at about 2 L by nasal cannula. She will require exercise oximetry and overnight oximetry prior to dismissal. (4) Anemia Qualifiers: Anemia type: unspecified type Qualified Code(s): D64.9 - Anemia, unspecified Current visit: Yes Status: Acute Workup of anemia is in progress. We'll check iron studies as well as stool for occult blood. Those are pending at present. (5) Benign essential hypertension Current visit: Yes Status: Chronic (6) Protein-calorie malnutrition, moderate Current visit: Yes Status: Acute Has evidence for at least moderate if not severe protein calorie malnutrition based on prealbumin of 10. In addition she reports she has lost weight although we are not certain how much. Dietitian is consulted in this regard. DVT Prophylaxis: Lovenox Resuscitation Status: Full Code - Course Hospital Course: Krish Godfrey MD: 07/22/17 11:27 Patient is rather complex. Pulmonary hale she seems to be stable but his hypoxemic without supplemental oxygen. Saturations down to 80% on room air. She does have protein calorie malnutrition based on low. Albumin. Dietitian is consulted. Anemia workup in progress. She is just getting started with therapies and appears to be cooperative. Left knee appears to be the main issue of pain. Radiograph reviewed and looks fairly unremarkable to me. May require orthopedic evaluation to rule out internal derangement. - Interventions to Obtain Goals PT Treatment Plan: Balance/Proprioception, Functional Activities, Gait Training , Patient/Family Education OT Treatment Plan: ADL (Basic Care), Balance Training, IADL, Pt./Family Education Goals Progress/Modifications: Time spent with patient and on floor reviewing data and documentin min. Barriers to dismissal: Cognition, left knee pain, endurance Medical decision-making: Has a new diagnosis of protein calorie malnutrition based on weight loss, anemia and low prealbumin. Dietitian is consulted. Has left knee pain which is quite debilitating for her. I reviewed the radiograph and it does show some degenerative changes but nothing too remarkable to my eye. We will await official interpretation. She may require orthopedic evaluation in this regard. She does have evidence of significant hypoxemia without oxygen supplementation and this may play a role in her cognition as well. Her blood sugars are running a bit high. We will work with the hospitalists with regard to blood sugar control, assessment and treatment of the left knee pain and continue therapy at the present time. In addition, her anemia workup is in progress with stool for occult blood and iron studies pending.
--- NOTE | 2017-07-22 12:38 | XRay Report ---
Indication: Right knee effusion s/p fall PROCEDURE: XR knee RT 3V: Encounter: Initial Comparison: None Findings: There is no acute fracture, dislocation or malalignment identified. Severe lateral patellofemoral joint space narrowing. Mild meniscal chondrocalcinosis. Impression: No acute osseous abnormality. .
--- NOTE | 2017-07-22 12:40 | XRay Report ---
Indication: Lt knee effusion S/P fall PROCEDURE: XR knee LT 3V: Encounter: Initial Comparison: None Findings: There is no acute fracture, dislocation or malalignment identified. Moderate lateral patellar joint space narrowing with lateral patellar tilting. Moderate to large joint effusion. Impression: No acute acute fracture seen. Moderate to large joint effusion raising some concern for an occult fracture. CT could be performed for further evaluation as clinically indicated. .
--- NOTE | 2017-07-22 13:36 | IRU Plan of Care ---
U Overall Plan of Care - Date Date: 07/22/17 - Patient Impairments (1) Critical illness myopathy Code(s): G72.81 - Critical illness myopathy Status: Acute Classification: Present on IRF Admission, IRF Tx That Should Address Diagnosis, Diagnosis Requiring Medical Follow Up (2) Diabetes mellitus type 2, insulin dependent Code(s): E11.9 - Type 2 diabetes mellitus without complications; Z79.4 - detention (current) use of insulin Status: Chronic Classification: Present on IRF Admission, IRF Tx That Should Address Diagnosis, Diagnosis Requiring Medical Follow Up (3) Acute hypoxemic respiratory failure Code(s): J96.01 - Acute respiratory failure with hypoxia Status: Acute Classification: Present on IRF Admission, IRF Tx That Should Address Diagnosis, Diagnosis Requiring Medical Follow Up (4) Anemia Qualifiers: Anemia type: unspecified type Qualified Code(s): D64.9 - Anemia, unspecified Code(s): D64.9 - Anemia, unspecified Status: Acute Classification: Present on IRF Admission, IRF Tx That Should Address Diagnosis, Diagnosis Requiring Medical Follow Up (5) Benign essential hypertension Code(s): I10 - Essential (primary) hypertension Status: Chronic Classification: Present on IRF Admission, IRF Tx That Should Address Diagnosis, Diagnosis Requiring Medical Follow Up (6) Protein-calorie malnutrition, moderate Code(s): E44.0 - Moderate protein-calorie malnutrition Status: Acute Classification: Present on IRF Admission, IRF Tx That Should Address Diagnosis, Diagnosis Requiring Medical Follow Up - Relevant Changes Relevant Changes: No Reviewed: I have reviewed the patient's information and concur with the finding and results of the pre-admission screen. Certification: I certify the patient for rehabilitation. - Medical Prognosis Medical Prognosis: Good Vital Signs: Last Vital Signs Temp 99.1 F 07/22/17 08:00 Pulse 71 07/22/17 08:00 Resp 18 07/22/17 13:22 BP 130/57 07/22/17 08:00 Pulse Ox 97 07/22/17 10:20 - Anticipated Interventions Anticipated Interventions: The patient requires inpatient IRF care for PT, OT, and/or ST for residuals remaining from pneumonia and sepsis resulting in muscular weakness and strength deficits. An individualized overall plan of care has been developed after careful review of the patient's preadmission screening, post admission physician evaluation and assessments of all therapy disciplines and/or other pertinent clinicians involved in treating the patient. This indicates medical necessity and rehabilitation necessity have been established through a thorough review of all available medical information. ROM Deficit: Left Lower Extremity Strength Deficits: Left Lower Extremity - Current Functional Status Failed Alternative Therapy: Arrived from Acute Care Patient Requires: The patient requires oversight by rehabilitation physician to manage their rehabilitation treatment plan and multidisciplinary approach to care that can only be provided in an IRF and requires a multidisciplinary approach to care, provided by professional PTs, OTs, STs, rehabilitation nurses, and may require STs, dieticians, and RTS. This is not available in lesser levels of care. Therapy: The patient is to receive therapy at least [address] Treatment Plan: Swallow Retraining/Exercises, Swallow Precautions, Modified Diet ST Treatment Plan Duration: One Week ST Treatment Plan Frequency: Five Times Per Week Plan of Care Comment: COMPLETE SWALLOW RETRAINING PROGRAM. Comments: Physical therapy: 75 minutes 3 days weekly, 90 minutes 2 days weekly Occupational therapy: 75 minutes 3 days weekly, 90 minutes 2 days weekly Speech therapy: 30 minutes 3 days weekly - Anticipated LOS/Outcomes Anticipated Functional Outcome: Expected functional improvements include: -- Modified independant to independant ambulation with or without assistive device -- Modified independant to independant ADL's with or without assistive device -- Return to pre-morbid level of mobility -- Maximize level of mobility and ADL's to decrease burden on any caregiver involved with this patient's care Anticipated Length of Stay (days): 10 Anticipated DC Destination: Home, Self Care, Home Health Service Home Safety Plan: The patient will be provided with the development of a Home Safety Plan for return to a home or home-like environment and and to ensure safety post discharge. - Plan to Avoid Complications Barriers to Attaining Goals: Weakness, Endurance, Comprehension, Pain Control, Medical Limitation Plan to Avoid Complications: The patient cannot receive this care in a lesser intensive setting such as Longterm or Outpatient Therapy due to the patient requiring the following : Close monitoring of patient's oxygen saturations, pain management in view of the left knee pain and interventions to reduce fall risk and risk of readmission. The patient requires a multidisciplinary coordinated approach to allow her to return to modified independent level of functioning..
--- NOTE | 2017-07-22 13:51 | Progress Note ---
Progress Note: Susan continues to complain of left knee pain since the fall prior to admission. There is an effusion. Reviewed plain films demonstrating effusion only. Discussed with Daphnie with the hospitalist service and we will pursue a CT scan to rule out fracture.
--- NOTE | 2017-07-22 15:46 | CT Scan Report ---
Indication: fall prior to admission; pain; effusion PROCEDURE: CT knee LT wo con: Encounter: Initial Comparison: Left knee radiographs from today Technique: Axial noncontrast CT of the left knee was performed with coronal and sagittal two-dimensional reformats. Three-dimensional surface shaded volume imaging was also created and reviewed. Automated Exposure Control and Iterative Reconstruction dose reducing techniques were utilized. Findings: Large knee joint effusion is again seen. This is simple fluid is not a lipoma hemarthrosis. There is a moderate sized Jackson's cyst. There is lateral and posterior subcutaneous edema. Muscular attenuation is within normal limits. No focal hematoma. Mild medial and lateral meniscal chondrocalcinosis with mild tricompartmental osteoarthritis. Mild bony demineralization. Impression: No acute fracture. Large joint effusion with mild tricompartmental osteoarthritis. .
[2017-07-22] MEDS: INSULIN DETEMIR 100unit/ml INJECTION SQ SCH (20:40)
[2017-07-23] MEDS: ALBUTEROL/IPRATROPIUM 2.5mg-0.5mg/3ml NEB AEROSOL SCH ×4 (05:29→19:49)
[2017-07-23] MEDS: INSULIN ASPART 100unit/ml INJECTION SQ SCH ×3 (08:36→17:44)
[2017-07-23] MEDS: ENOXAPARIN 40 MG/0.4 ML INJECTION SQ SCH (08:36)
[2017-07-23] MEDS: FUROSEMIDE 40 MG TABLET PO SCH (08:36)
[2017-07-23] MEDS: CARVEDILOL 25 MG TABLET PO SCH ×2 (08:36→17:43)
[2017-07-23] MEDS: AMLODIPINE 10 MG TABLET PO SCH (08:37)
[2017-07-23] MEDS: LISINOPRIL 40 MG TABLET PO SCH (08:37)
[2017-07-23] MEDS: GUAIFENESIN/P-EPHED 600 MG/60 MG TAB (12HR) PO SCH ×2 (08:37→20:37)
[2017-07-23] MEDS: IBUPROFEN 400 MG TABLET PO SCH ×2 (12:14→17:43)
[2017-07-23] MEDS: FAMOTIDINE 20 MG TABLET PO SCH (12:14)
--- NOTE | 2017-07-23 13:53 | Progress Note ---
- Date 07/23/17 Objective Vital signs: Temperature 98.5 F 07/23/17 08:35 Pulse Rate 71 07/23/17 08:35 Respiratory Rate 16 07/23/17 12:45 Blood Pressure 120/52 07/23/17 08:35 Pulse Oximetry 98 07/23/17 08:35 Height/Weight/BMI: Height 1.7 m Weight 77.1 kg Body Mass Index 26.6 Results - Labs CBC & Chem 7: 07/22/17 04:35 07/22/17 04:35 - ABG Interpretation ABG results: 07/21/17 19:46 ABG pH 7.490 H ABG pCO2 40 ABG pO2 69 L ABG HCO3 31 H ABG Total CO2 31.7 H ABG O2 Saturation 95.0 ABG Base Excess 6.6 H Assessment and Plan (1) Critical illness myopathy Current visit: Yes Status: Acute Assessment and Plan: Assessment: Myopathy Recent hospitalization for severe sepsis; Pneumonia (suspect aspiration), acute hypoxic resp failure requiring intubation, acute metabolic encephalopathy, UTI, hypokalemia/hypomagnesemia, normocytic anemia, left kidney lesion 3.4 cm, noncalcified pulm nodules in right lung (7-8 mm); thrombocytosis Uncontrolled type 2 DM - hgb A1c at [facility] was 11.5% Benign essential hypertension CHF, diastolic (Jun 2017: EF of 60% with moderately concentric LVH and grade 1 LV diastolic dysfunction) Left kidney lesion 3.4 cm (renal u/s in Jun 2017 showed simple renal cysts b/l) Right pulm nodule measuring 7-[address] in Jun 2017 Vit D deficiency Dysphagia Plan: ~Resume metformin which she was taking prior to hospitalization. Will follow sugars and adjust insulin as needed. Consider increasing her Levemir, but will hold off on doing that since we are initiating the metformin. ~Start Niferex and Vit C for iron deficiency. ~Start Vit D given her dx of Vitamin D deficiency Hospital Course Summary Disclaimer: The visit summary below is not to be considered part of the above Progress Note. Hospital Course: IMPRESSION Myopathy Recent hospitalization for severe sepsis; Pneumonia (suspect aspiration), acute hypoxic resp failure requiring intubation, acute metabolic encephalopathy, UTI, hypokalemia/hypomagnesemia, normocytic anemia, left kdiney lesion 3.4 cm, noncalcified pulm nodules in right lung (7-8 mm); thrombocytosis Uncontrolled type 2 DM - hgb A1c at [facility] was 11.5% Benign essential hypertension CHF, diastolic (Jun 2017: EF of 60% with moderately concentric LVH and grade 1 LV diastolic dysfunction) Left kidney lesion 3.4 cm (renal u/s in Jun 2017 showed simple renal cysts b/l) Right pulm nodule measuring 7-[address] in Jun 2017 Vit D deficiency Dysphagia PLAN Agree w/ orders per attending, Dr. Godfrey. Recent resp failure requiring intubation/mech ventilation, s/p bronchoscopy - currently on low-flow O2 - wean as able. Encourage smoking cessation. Dysphasia diet with soft foods and honey thick liquid. Agree with ST consult. Monitor electrolytes - recent low K & mg. Also on Lasix/KDur. HTN with recent HTN urgency - cont norvasc, coreg, lasix, lisinopril. DM2, uncontrolled - monotir BGM; continue Levemir & NovoLog; consider re- introducing Metformin (pt was on this prior to acute hospitalization). PT/OT consults to address acute critical illness myopathy. Monitor hgb & plt - had mild anemia (11.) and thrombocytosis (536) at [facility] on 07/17. K on 07/18 was 3.8; cr 0.7 She will require outpt f/u for pulm nodule with repeat CT scan by 10/2017. Thank you for this consult. We will follow Marylin along with you during her stay in IRU. [facility] records were reviewed. D/W Dr. Gill.
--- NOTE | 2017-07-23 13:55 | IRU Progress Note ---
- Subjective/Serverity of Illness Marylin continues to complain of left knee pain. There is an effusion present. CT scan reviewed and indicates effusion plus degenerative changes only. Patient was advised. Her oxygen requirements are variable. At times she seems to get by nicely on room air with good saturations and other times she needs supplementation. Update on items requiring active monitoring and/or management: 1. Diabetes Mellitus Type II on insulin: Her blood sugars remain elevated. Hospitalists are monitoring. 2. Critical illness myopathy: She is cooperative with therapy. Cognition is an impairment. She is improving but does have significant muscle weakness. 3. Dysphagia: Remains on modified diet. No evidence of recurrent aspiration. 4. Acute hypoxemic respiratory failure, on supplemental oxygen: Her oxygen requirements are variable. At times she is adequately oxygenating on room air. At times she does need supplemental oxygen. She will need or and oximetry plus exercise oximetry prior to going home. 5. Hypokalemia: She is on supplemental potassium at 20 mEq daily. 6. Hypomagnesemia 7. Pulmonary nodules: This is not a current active problem but will require follow-up CT of the chest in about 3 months. 8. Recent pneumonia: Lungs sound clear. Denies cough. Does have some easy fatigability but no evidence of recurrent pneumonia. 9. Left knee injury and pain and: CT was negative for acute trauma except for the effusion. No fracture noted. Patient was advised. I asked if she has a history of peptic ulcer disease and she does not she states. Her creatinine is normal. We will start ibuprofen on a regular basis along with Pepcid. Exam Vital Signs: Temperature 98.5 F 07/23/17 08:35 Pulse Rate 71 07/23/17 08:35 Respiratory Rate 16 07/23/17 12:45 Blood Pressure 120/52 07/23/17 08:35 Pulse Oximetry 98 07/23/17 08:35 Height/Weight/BMI: Height 1.7 m Weight 77.1 kg Body Mass Index 26.6 Comments: The patient is awake, alert. She is in a good mood and is joking. Uncertain degree of orientation at present. She is in no distress with the exception of the left knee. Pupils are equal. The neck is supple. Chest: Clear to auscultation bilaterally. Her lung sounds are diminished bilaterally. Cor: RR with no gallop, click nor murmur Abd: soft with normo-active bowel sounds. There are no masses, no tenderness and no guarding. Extremities: No edema is present although there is an effusion involving the left knee.. Results IRU - Labs Labs: Reviewed labs. Reviewed CT scan. - ABG Interpretation ABG results: 07/21/17 19:46 ABG pH 7.490 H ABG pCO2 40 ABG pO2 69 L ABG HCO3 31 H ABG Total CO2 31.7 H ABG O2 Saturation 95.0 ABG Base Excess 6.6 H IRU A/P (1) Critical illness myopathy Current visit: Yes Status: Acute Marylin is improving with therapy. Continues to demonstrate significant muscle weakness in the proximal muscles but is improving in this regard. (2) Diabetes mellitus type 2, insulin dependent Current visit: Yes Status: Chronic Blood sugars are in general running too high. Hospitalist service is following and adjusting. (3) Acute hypoxemic respiratory failure Current visit: Yes Status: Acute Her submental oxygen needs are variable. Prior to dismissal we will need to do overnight oximetry and exercise oximetry. (4) Anemia Qualifiers: Anemia type: unspecified type Qualified Code(s): D64.9 - Anemia, unspecified Current visit: Yes Status: Acute (5) Benign essential hypertension Current visit: Yes Status: Chronic (6) Protein-calorie malnutrition, moderate Current visit: Yes Status: Acute DVT Prophylaxis: Lovenox Resuscitation Status: Full Code - Course Hospital Course: Krish Godfrey MD: 07/22/17 11:27 Patient is rather complex. Pulmonary hale she seems to be stable but his hypoxemic without supplemental oxygen. Saturations down to 80% on room air. She does have protein calorie malnutrition based on low. Albumin. Dietitian is consulted. Anemia workup in progress. She is just getting started with therapies and appears to be cooperative. Left knee appears to be the main issue of pain. Radiograph reviewed and looks fairly unremarkable to me. May require orthopedic evaluation to rule out internal derangement. 07/23/17 14:41 Left knee is continuing to be an impediment to her progress. CT of knee showed effusion and degenerative changes only but no fracture. Does not have history of peptic ulcer disease and her creatinine is normal; we will therefore start ibuprofen. - Interventions to Obtain Goals PT Treatment Plan: Balance/Proprioception, Functional Activities, Gait Training , Patient/Family Education, Therapeutic Exercise OT Treatment Plan: ADL (Basic Care), Balance Training, IADL, Pt./Family Education Goals Progress/Modifications: Time spent with patient and on floor reviewing data and documentin min Barriers to dismissal: Cognition, endurance, strength, left knee pain Medical decision-making: I reviewed her left knee situation. She continues to have an effusion. Knee is slightly warm but does not appear to be infected. CT was done in this is reviewed. Shows effusion plus degenerative changes but no fracture. She does not have history of known peptic ulcer disease nor renal failure and we will therefore start ibuprofen and monitor carefully.
--- NOTE | 2017-07-23 14:31 | Progress Note ---
- Date 07/23/17 Subjective: Patient is seen napping in bed after lunch. She reports her knee is better today. She is off O2. She feels that her breathing is fine. Her BS was >300 prior to lunch. Her metformin which she was taking pre-hospital has not been restarted yet. Bowels are moving. No complaints. Objective Vital signs: Temperature 98.5 F 07/23/17 08:35 Pulse Rate 71 07/23/17 08:35 Respiratory Rate 16 07/23/17 12:45 Blood Pressure 120/52 07/23/17 08:35 Pulse Oximetry 98 07/23/17 08:35 Height/Weight/BMI: Height 1.7 m Weight 77.1 kg Body Mass Index 26.6 - Constitutional Present: no acute distress, well nourished, well developed - Routine Respiratory Exam Present: CTA bilaterally. Absent: wheezes - Routine Cardiovascular Exam Present: RRR. Absent: murmur - Routine Abdominal Exam Present: soft, normoactive bowel sounds, non distended. Absent: tenderness - Routine Extremities Exam Present: no edema (to feet or ankles), normal capillary refill Comments: L knee effusion with some tenderness. No redness. - Routine Skin Exam Present: dry, warm - Routine Neurological Exam Present: alert, normal speech - Routine Lymphatic Exam Lymphatic: Absent: adenopathy - Routine Psychiatric Exam Present: normal affect, cooperative Results - Labs CBC & Chem 7: 07/22/17 04:35 07/22/17 04:35 - ABG Interpretation ABG results: 07/21/17 19:46 ABG pH 7.490 H ABG pCO2 40 ABG pO2 69 L ABG HCO3 31 H ABG Total CO2 31.7 H ABG O2 Saturation 95.0 ABG Base Excess 6.6 H Assessment and Plan (1) Critical illness myopathy Current visit: Yes Status: Acute Assessment and Plan: Assessment: Myopathy Recent hospitalization for severe sepsis; Pneumonia (suspect aspiration), acute hypoxic resp failure requiring intubation, acute metabolic encephalopathy, UTI, hypokalemia/hypomagnesemia, normocytic anemia, left kidney lesion 3.4 cm, noncalcified pulm nodules in right lung (7-8 mm); thrombocytosis Uncontrolled type 2 DM - hgb A1c at [facility] was 11.5% Benign essential hypertension CHF, diastolic (Jun 2017: EF of 60% with moderately concentric LVH and grade 1 LV diastolic dysfunction) Left kidney lesion 3.4 cm (renal u/s in Jun 2017 showed simple renal cysts b/l) Right pulm nodule measuring 7-[address] in Jun 2017 Vit D deficiency Dysphagia Plan: ~Resume metformin which she was taking prior to hospitalization. Will follow sugars and adjust insulin as needed. Consider increasing her Levemir, but will hold off on doing that since we are initiating the metformin. ~Start Niferex and Vit C for iron deficiency. ~Start Vit D given her dx of Vitamin D deficiency. ~Continue thickened liquids to prevent aspiration. Hospital Course Summary Disclaimer: The visit summary below is not to be considered part of the above Progress Note. Hospital Course: IMPRESSION Myopathy Recent hospitalization for severe sepsis; Pneumonia (suspect aspiration), acute hypoxic resp failure requiring intubation, acute metabolic encephalopathy, UTI, hypokalemia/hypomagnesemia, normocytic anemia, left kdiney lesion 3.4 cm, noncalcified pulm nodules in right lung (7-8 mm); thrombocytosis Uncontrolled type 2 DM - hgb A1c at [facility] was 11.5% Benign essential hypertension CHF, diastolic (Jun 2017: EF of 60% with moderately concentric LVH and grade 1 LV diastolic dysfunction) Left kidney lesion 3.4 cm (renal u/s in Jun 2017 showed simple renal cysts b/l) Right pulm nodule measuring 7-[address] in Jun 2017 Vit D deficiency Dysphagia PLAN Agree w/ orders per attending, Dr. Godfrey. Recent resp failure requiring intubation/mech ventilation, s/p bronchoscopy - currently on low-flow O2 - wean as able. Encourage smoking cessation. Dysphasia diet with soft foods and honey thick liquid. Agree with ST consult. Monitor electrolytes - recent low K & mg. Also on Lasix/KDur. HTN with recent HTN urgency - cont norvasc, coreg, lasix, lisinopril. DM2, uncontrolled - monotir BGM; continue Levemir & NovoLog; consider re- introducing Metformin (pt was on this prior to acute hospitalization). PT/OT consults to address acute critical illness myopathy. Monitor hgb & plt - had mild anemia (11.) and thrombocytosis (536) at [facility] on 07/17. K on 07/18 was 3.8; cr 0.7 She will require outpt f/u for pulm nodule with repeat CT scan by 10/2017. Thank you for this consult. We will follow Marylin along with you during her stay in IRU. [facility] records were reviewed. D/W Dr. Gill.
[2017-07-23] MEDS: IRON POLYSACCHARIDE COMPLEX 150 MG CAPSULE PO SCH (17:43)
[2017-07-23] MEDS: METFORMIN 500 MG TABLET PO SCH (17:43)
[2017-07-23] MEDS: ASCORBIC ACID 500 MG TABLET PO SCH (17:43)
[2017-07-23] MEDS: INSULIN DETEMIR 100unit/ml INJECTION SQ SCH (20:45)
[2017-07-24] MEDS: ALBUTEROL/IPRATROPIUM 2.5mg-0.5mg/3ml NEB AEROSOL SCH ×4 (05:54→20:50)
[2017-07-24] MEDS: GUAIFENESIN/P-EPHED 600 MG/60 MG TAB (12HR) PO SCH ×2 (08:35→20:37)
[2017-07-24] MEDS: METFORMIN 500 MG TABLET PO SCH ×2 (08:35→18:14)
[2017-07-24] MEDS: LISINOPRIL 40 MG TABLET PO SCH (08:35)
[2017-07-24] MEDS: AMLODIPINE 10 MG TABLET PO SCH (08:35)
[2017-07-24] MEDS: FUROSEMIDE 40 MG TABLET PO SCH (08:35)
[2017-07-24] MEDS: FAMOTIDINE 20 MG TABLET PO SCH (08:36)
[2017-07-24] MEDS: IBUPROFEN 400 MG TABLET PO SCH ×3 (08:36→18:14)
[2017-07-24] MEDS: CARVEDILOL 25 MG TABLET PO SCH ×2 (08:36→18:14)
[2017-07-24] MEDS: ENOXAPARIN 40 MG/0.4 ML INJECTION SQ SCH (08:37)
[2017-07-24] MEDS: ASCORBIC ACID 500 MG TABLET PO SCH (08:37)
[2017-07-24] MEDS: INSULIN ASPART 100unit/ml INJECTION SQ SCH ×3 (08:37→18:14)
[2017-07-24] MEDS: IRON POLYSACCHARIDE COMPLEX 150 MG CAPSULE PO SCH (08:37)
--- NOTE | 2017-07-24 11:11 | IRU Progress Note ---
- Subjective/Serverity of Illness Marylin was evaluated in the inpatient rehabilitation unit. She reports that her left knee is improved. She feels though the e-stim has provided benefit. We also did start ibuprofen. She denies any abdominal pain and continues to state that she has never had any peptic ulcer disease. She states that her cough is getting quite minimal. Sounds a little loose she states but I have not really heard any coughing recently. She is cooperative with therapy. She would like to get back home. Update on items requiring active monitoring and/or management: 1. Diabetes Mellitus Type II on insulin: Review blood sugars. Metformin was restarted yesterday. I will increase the bedtime Levemir just slightly up to 18 units. We will monitor carefully. 2. Critical illness myopathy: Continues to improve with therapy but still has significant muscle weakness. 3. Dysphagia: Remains on modified diet. No evidence of recurrent aspiration. 4. Acute hypoxemic respiratory failure, on supplemental oxygen: She has gotten by with room air more recently. We will assess overnight oximetry and exercise oximetry prior to dismissal. 5. Hypokalemia: She is on supplemental potassium at 20 mEq daily. 6. Hypomagnesemia 7. Pulmonary nodules: This is not a current active problem but will require follow-up CT of the chest in about 3 months. 8. Recent pneumonia: Lungs sound clear. Denies cough. Does have some easy fatigability but no evidence of recurrent pneumonia. 9. Left knee injury and pain: She feels as though the pain is doing better in the left knee. Effusion still noted. 10: anemia: Appears to have iron deficiency anemia. Stool for occult blood is negative. Exam Vital Signs: Temperature 97.8 F 07/24/17 08:00 Pulse Rate 61 07/24/17 08:00 Respiratory Rate 16 07/24/17 10:06 Blood Pressure 118/55 07/24/17 08:00 Pulse Oximetry 97 07/24/17 10:06 Height/Weight/BMI: Height 1.7 m Weight 77.1 kg Body Mass Index 26.6 Comments: The patient is awake, alert and oriented and in no acute distress. Pupils are equal. The neck is supple. Chest: Bilateral diminished breath sounds but lungs are clear. Cor: RR with no gallop, click nor murmur Abd: soft with normo-active bowel sounds. There are no masses, no tenderness and no guarding. Extremities: No edema is noted. Left knee continues to demonstrate an effusion. Results IRU - Labs Labs: Have reviewed other providers notes as well as blood sugars. Metformin restarted yesterday. IRU A/P (1) Critical illness myopathy Current visit: Yes Status: Acute Continues to work with therapy and her myopathy is improving. Strength is better. (2) Diabetes mellitus type 2, insulin dependent Current visit: Yes Status: Chronic Blood sugars remain elevated. Metformin was restarted yesterday. We will also increase Levemir just slightly to 18 units at at bedtime. We will monitor her sugars carefully. (3) Acute hypoxemic respiratory failure Current visit: Yes Status: Acute She is requiring less oxygen and is now on room air for the most part. (4) Anemia Qualifiers: Anemia type: unspecified type Qualified Code(s): D64.9 - Anemia, unspecified Current visit: Yes Status: Acute TIBC is normal. Percent saturation is low. Ferritin is normal which could be an immediate phase reactant. In all likelihood this is iron deficiency anemia. Her stool for occult blood is negative. Continue supplementation. (5) Benign essential hypertension Current visit: Yes Status: Chronic (6) Protein-calorie malnutrition, moderate Current visit: Yes Status: Acute DVT Prophylaxis: Lovenox Resuscitation Status: Full Code - Course Hospital Course: Krish Godfrey MD: 07/22/17 11:27 Patient is rather complex. Pulmonary hale she seems to be stable but his hypoxemic without supplemental oxygen. Saturations down to 80% on room air. She does have protein calorie malnutrition based on low. Albumin. Dietitian is consulted. Anemia workup in progress. She is just getting started with therapies and appears to be cooperative. Left knee appears to be the main issue of pain. Radiograph reviewed and looks fairly unremarkable to me. May require orthopedic evaluation to rule out internal derangement. 07/23/17 14:41 Left knee is continuing to be an impediment to her progress. CT of knee showed effusion and degenerative changes only but no fracture. Does not have history of peptic ulcer disease and her creatinine is normal; we will therefore start ibuprofen. 07/24/17 11:12 Left knee pain improved which she ascribes to the e-stim. Also on ibuprofen without abdominal pain. She is taking iron supplement. Stool was negative for occult blood. Oxygen requirements are improved. Restarted metformin yesterday. Increase at bedtime Levemir slightly to 18 units today. - Interventions to Obtain Goals PT Treatment Plan: Balance/Proprioception, Functional Activities, Gait Training , Patient/Family Education, Therapeutic Exercise OT Treatment Plan: ADL (Basic Care), Balance Training, IADL, Pt./Family Education Goals Progress/Modifications: Time spent with patient and on floor reviewing data and documentin min Barriers to dismissal: Endurance, cognition Medical decision-making: We evaluated her anemia with iron studies and occult blood in stool. This was negative in the stool. In all likelihood she does have true on deficiency anemia due to reduced oral intake. I'm concerned about her nutritional status at home. Secondly, her oxygen requirements have improved. She is getting by with room air most the time. Thirdly, she is now on ibuprofen and therapies using e-stim for the left knee. Left knee pain is improved. Finally, her blood sugars remain elevated. Metformin was restarted yesterday. I took the liberty of increasing the evening Levemir starting today by 3 units. Continue monitoring sugars carefully.
--- NOTE | 2017-07-24 14:17 | IRU Team Meeting ---
IRU Team Meeting - Nursing Bladder Assistive Devices Utilized:: Absorbent Pad Bladder Management Level of Assist: Stand By Assist/Supervision Bowel Management Level of Assist: Minimal Assistance Vital Signs: Vital Signs - 24 hr 07/23/17 15:25 07/23/17 16:05 07/23/17 19:49 Temperature 98.4 F Pulse Rate 64 Respiratory Rate 16 20 16 Blood Pressure 133/61 Pulse Oximetry 91 07/23/17 20:30 07/23/17 20:35 07/24/17 05:54 Temperature 97.6 F Pulse Rate 54 L Respiratory Rate 24 20 Blood Pressure 110/54 Pulse Oximetry 89 L 95 07/24/17 08:00 07/24/17 10:06 Temperature 97.8 F Pulse Rate 61 Respiratory Rate 18 16 Blood Pressure 118/55 Pulse Oximetry 96 97 Current Medications: Acetaminophen (Tylenol) 650 mg PO Q6H PRN PRN Reason: Pain Albuterol/Ipratropium (Duoneb) 3 ml AEROSOL RTQID [facility] Last Admin: 07/24/17 10:06 Dose: 3 ml Amlodipine Besylate (Norvasc) 10 mg PO DAILY [facility] Last Admin: 07/24/17 08:35 Dose: 10 mg Ascorbic Acid (Vitamin C) 500 mg PO DAILY [facility] Last Admin: 07/24/17 08:37 Dose: 500 mg Carvedilol (Coreg) 25 mg PO BIDWM [facility] Last Admin: 07/24/17 08:36 Dose: 25 mg Cholecalciferol (Vit. D-3) 2,000 unit PO DAILY [facility] Last Admin: 07/24/17 08:35 Dose: 2,000 unit Enoxaparin Sodium (Lovenox) 40 mg SQ DAILY [facility] Last Admin: 07/24/17 08:37 Dose: 40 mg Famotidine (Pepcid) 20 mg PO DAILY [facility] Last Admin: 07/24/17 08:36 Dose: 20 mg Furosemide (Lasix) 40 mg PO DAILY [facility] Last Admin: 07/24/17 08:35 Dose: 40 mg Guaifenesin/Pseudoephedrine HCl (Mucinex D) 1 tab PO Q12H [facility] Last Admin: 07/24/17 08:35 Dose: 1 tab Ibuprofen (Motrin) 400 mg PO TIDWM [facility] Last Admin: 07/24/17 12:35 Dose: Not Given Insulin Aspart (Novolog) 10 unit SQ TIDWM [facility] Last Admin: 07/24/17 12:35 Dose: 10 unit Insulin Detemir (Levemir) 18 unit SQ [facility] Lisinopril (Prinivil) 40 mg PO DAILY [facility] Last Admin: 07/24/17 08:35 Dose: 40 mg Metformin HCl (Glucophage) 500 mg PO BIDWM [facility] Last Admin: 07/24/17 08:35 Dose: 500 mg Nicotine (Nicoderm) 14 mg TD DAILY PRN PRN Reason: Anxiety Nicotine (Nicotine Patch Removal) 1 removal TD DAILY PRN PRN Reason: Anxiety Polysaccharide Iron Complex (Niferex) 150 mg PO DAILY [facility] Last Admin: 07/24/17 08:37 Dose: 150 mg Potassium Chloride (K-Dur) 20 meq PO WB [facility] Last Admin: 07/24/17 08:37 Dose: 20 meq Current Medical Issues: Diabetes mellitus type 2, critical illness myopathy, acute respiratory failure with hypoxemia, improved, left knee pain secondary to fall and osteoarthritis Comments: I certify that I personally led the interdisciplinary team meeting and agree with comments, barriers and goals indicated. Team meeting was held in the patient's room with the patient and the following family members present: patient alone. (Did speak with patient's daughter by phone later.) Marylin continues to have pain in the left knee although it is improved. Her blood sugars have been elevated. She is on insulin. She declines to use insulin at home. - Dietary She is on a 2000-calorie thickened liquids and mechanical soft diet. - Speech Therapy She has worked with speech therapy on several occasions. Aspiration precautions have been given to the patient with strong recommendation to follow them at home. Patient states that she does not plan to do so and plans to eat and drink whatever she wishes. She was advised of the risk of aspiration. - Physical Therapy Bed, Chair, Wheelchair Transfer Assist: Stand By Assist/Supervision Ambulation Ability: Stand By Assist/Supervision Ambulation Distance: 153 Stair Climbing Ability: Stand By Assist/Supervision Number of Steps Climbed: 12 Car Transfer Ability: Stand By Assist/Supervision Comments: Marylin is making good progress toward goals. She requires fewer verbal cues with transfers for safety. She is working on improving maneuverability and safety with use of front-wheeled walker. - Occupational Therapy Eating Ability: Independent Grooming Ability: Independent Bathing Ability: Modified Independent Upper Body Dressing Ability: Independent Lower Body Dressing Ability: Stand By Assist/Supervision Tub Transfer Assist: Stand By Assist/Supervision Toileting Assist: Stand By Assist/Supervision Toilet Transfer Assist: Stand By Assist/Supervision Comments: Patient has advised occupational therapy that she would like to go home before the weekend in order to attend her granddaughter's play. Cognition is an issue. She is easily distractible and requires cues for sequencing the task. She states that she does not anticipate using her front-wheeled walker at home. - Goals Physical Therapy Goals: 07/24/17 Goals: 1.) Mod I with amb with use of FWW. 2. ) Mod I with transfers Occupational Therapy Goals: 07/24 goals: 1.) LB dressing w/ mod I. 2.) Laundry tasks w/ mod I - Barriers to Discharge Barriers to Attaining Goals: Endurance, Pain Control, Other (safety) - Care Plan Anticipated Length of Stay (days): 1 Anticipated DC Destination: Home, Self Care (we are recommending home health but patient declines.) I have led this team conference and agree with the plan.
[2017-07-24] MEDS ORDERED: INSULIN DETEMIR 100unit/ml INJECTION SQ SCH (21:00)
[2017-07-25 08:03] VITALS: BP 158/68; PULSE 79; TEMP 98; O2SAT 97
[2017-07-25] MEDS: ALBUTEROL/IPRATROPIUM 2.5mg-0.5mg/3ml NEB AEROSOL SCH (08:50)
[2017-07-25 08:55] VITALS: RESP 16
[2017-07-25] MEDS: CARVEDILOL 25 MG TABLET PO SCH (09:15)
[2017-07-25] MEDS: ENOXAPARIN 40 MG/0.4 ML INJECTION SQ SCH (09:15)
[2017-07-25] MEDS: GUAIFENESIN/P-EPHED 600 MG/60 MG TAB (12HR) PO SCH (09:16)
[2017-07-25] MEDS: METFORMIN 500 MG TABLET PO SCH (09:16)
[2017-07-25] MEDS: FAMOTIDINE 20 MG TABLET PO SCH (09:16)
[2017-07-25] MEDS: IRON POLYSACCHARIDE COMPLEX 150 MG CAPSULE PO SCH (09:18)
[2017-07-25] MEDS: AMLODIPINE 10 MG TABLET PO SCH (09:18)
[2017-07-25] MEDS: LISINOPRIL 40 MG TABLET PO SCH (09:18)
[2017-07-25] MEDS: ASCORBIC ACID 500 MG TABLET PO SCH (09:18)
[2017-07-25] MEDS: INSULIN ASPART 100unit/ml INJECTION SQ SCH ×2 (09:18→12:08)
[2017-07-25] MEDS: IBUPROFEN 400 MG TABLET PO SCH ×2 (09:19→12:09)
[2017-07-25] MEDS: FUROSEMIDE 40 MG TABLET PO SCH (09:20)
--- NOTE | 2017-07-25 14:00 | Progress Note ---
<SaschaTreva fermin D - Last Filed: 07/25/17 14:13> - Date 07/25/17 Subjective: aMrylin has no complaints, just ready to go home. She received education on dietary choices from the dietitian earlier today, but she is not planning on making any changes. She states that ever since her 5 years ago, "I just don't care". She is also refusing to thicken liquids at home. She also adamantly refuses to take insulin at home, despite knowing that her diabetes is uncontrolled and will continue to cause damage. She also plans on resuming smoking when she returns home. She did agree to taking the BP medications. She denies any SOA or chest pain. Her cough has resolved. She denies abdominal pain or nausea and her appetite has been stable. She denies dizziness. Objective Vital signs: Temperature 98.0 F 07/25/17 08:00 Pulse Rate 79 07/25/17 08:00 Respiratory Rate 16 07/25/17 08:40 Blood Pressure 158/68 H 07/25/17 08:00 Pulse Oximetry 97 07/25/17 08:40 Height/Weight/BMI: Height 1.7 m Weight 77.1 kg Body Mass Index 26.6 - Constitutional Present: no acute distress, well nourished, well developed - Routine HEENT Exam Head: Present: normocephalic Eye: Absent: conjunctival icterus ENT: Present: mucous membranes moist - Routine Respiratory Exam Present: CTA bilaterally - Routine Cardiovascular Exam Present: RRR, S1, S2 - Routine Abdominal Exam Present: soft, normoactive bowel sounds, non tender - Routine Extremities Exam Present: no edema - Routine Back/Spine/Pelvis Exam Back/Spine: Present: full ROM - Routine Skin Exam Present: intact, dry, warm - Routine Neurological Exam Present: alert, oriented X3 - Routine Psychiatric Exam Present: normal affect, normal thought process Results - Labs CBC & Chem 7: 07/24/17 04:37 07/24/17 04:37 Assessment and Plan (1) Critical illness myopathy Current visit: Yes Status: Acute Assessment and Plan: IMPRESSION Myopathy Recent hospitalization for severe sepsis; Pneumonia (suspect aspiration), acute hypoxic resp failure requiring intubation, acute metabolic encephalopathy, UTI, hypokalemia/hypomagnesemia, normocytic anemia, left kidney lesion 3.4 cm, noncalcified pulm nodules in right lung (7-8 mm); thrombocytosis Uncontrolled type 2 DM - hgb A1c at [facility] was 11.5% Benign essential hypertension CHF, diastolic (Jun 2017: EF of 60% with moderately concentric LVH and grade 1 LV diastolic dysfunction) Left kidney lesion 3.4 cm (renal u/s in Jun 2017 showed simple renal cysts b/l) Right pulm nodule measuring 7-[address] in Jun 2017 Vit D deficiency Dysphagia PLAN Recommended home insulin and glucose monitoring, carbohydrate consistent diet, thickened liquids, and smoking cessation - at time of dc pt is refusing these interventions and lifestyle changes. HH also recommended, which pt reluctantly agreed to. She refused to discuss depression symptoms or to see a psychiatrist. Medications reviewed with patient - she's not quite sure what she has at home and only the Lisinopril sounds familiar to her. Rx for Norvasc 10 mg daily, Coreg 25 mg BID, Lasix 40 mg daily, KDur 30 mEq daily (increased from 20), Lisinopril 40 mg daily, and Metformin 850 mg BID (increased from 500 mg BID which is what she was taking at home). Also recommended OTC Vit D, iron, and Vit C. Recommend BMP recheck in about 5 days - monitor renal function and K while on Lisinopril, Lasix, KDur, and Metformin. F/U with Dr. Varun Stout next week - I spoke with him about medication changes , BMP order, and poss underlying depression. He will plan on following up with her in clinic. Hospital Course Summary Disclaimer: The visit summary below is not to be considered part of the above Progress Note. <Sangita Gill L - Last Filed: 07/25/17 15:30> - Date 07/25/17 Objective Vital signs: Temperature 98.0 F 07/25/17 08:00 Pulse Rate 79 07/25/17 08:00 Respiratory Rate 16 07/25/17 08:40 Blood Pressure 158/68 H 07/25/17 08:00 Pulse Oximetry 97 07/25/17 08:40 Height/Weight/BMI: Height 1.7 m Weight 77.1 kg Body Mass Index 26.6 Results - Labs CBC & Chem 7: 07/24/17 04:37 07/24/17 04:37 Assessment and Plan (1) Critical illness myopathy Current visit: Yes Status: Acute Assessment and Plan: 07/25/2017-I reviewed this chart, the patient history, and the [employer]'s/PA's documented findings as above. We discussed and formulated the assessment and plan as above with the additions below.-Dr. Gill The patient states that she is feeling well and ready for discharge. She denies any breathing difficulties. She states she is getting around okay. She states her appetite is good, but she does not like the food here. She think she will eat well when she gets home. On exam she is alert and oriented and in no acute distress. Chest is clear to auscultation. Cardiovascular reveals a regular rate and rhythm. Abdomen is soft and nontender. Extremities are free of edema. Plan is for dismissal to home today. Unfortunately, the patient is refusing home insulin, glucose monitoring, diabetic diet, thickened liquids, and smoking cessation. She is agreeable to home health at this time. Plans are for close follow-up with her primary care physician. Hospital Course Summary Disclaimer: The visit summary below is not to be considered part of the above Progress Note.
[2017-07-25] MEDS ORDERED: ALBUTEROL/IPRATROPIUM 2.5mg-0.5mg/3ml NEB AEROSOL SCH (21:00)
--- NOTE | 2017-07-28 14:06 | Discharge Summary ---
Discharge Information Date of admission: 07/21/17 14:25 Anticipated date of discharge: 07/25/17 Attending Physician: Krish Godfrey MD Primary care physician: Varun Stout MD Consults: 07/21/17 Granulator Tender Consult [Inpatient Diabetic Consult] [CONS] Routine Diabetic Diagnosis: E11.65 Uncontrolled T2 DM Diabetic Training: Medications Monitoring Diabetes Self-management Support Comment: New to insulin; A1C 11 in [place] 07/21/17 15:39 Physician Consult [CONS] Routine Consulting Provider: Dejuan Menon Reason For Exam: Medical management Ordering Provider has Notified Entry Level Business Analyst: Lucy 07/21/17 16:30 Dietary Consult [CONS] Routine Comment: Reason For Exam: Diabetes mellitus, ? possible weight loss - Discharge Diagnosis (1) Critical illness myopathy Status: Acute (2) Diabetes mellitus type 2, insulin dependent Status: Chronic (3) Acute hypoxemic respiratory failure Status: Acute (4) Anemia Status: Acute (5) Benign essential hypertension Status: Chronic (6) Protein-calorie malnutrition, moderate Status: Acute 1. Critical illness myopathy 2. Diabetes mellitus, type II, not on long-term insulin therapy but insulin dependent 3. Acute hypoxemic respiratory failure 4. Anemia with negative stools for occult blood 5. Benign essential hypertension 6. Protein calorie malnutrition 7. Depression - Laboratory Labs: 07/24/17 04:37 07/24/17 04:37 History of Present Illness HPI: 07/28/17 14:06 Ms. Hercules is a 77-year-old female who had apparently fallen at home and was admitted to [facility] on 07/07/2017. Radiographs were negative for fracture. However she was diagnosed with severe sepsis secondary to pneumonia. She was treated with intravenous antibiotics and in fact required intubation. She self extubated within 24 hours. She did also have evidence of acute hypoxemic respiratory failure. In addition, she was noted to have an A1c markedly elevated at 11.5 and had been on oral agents only. She had evidence of metabolic encephalopathy with increased confusion secondary to the sepsis etc. She had evidence of critical illness myopathy based on reduced proximal muscle strength (she required moderate assistance for sit to stand and stand to sit transfers upon admission) and was therefore transferred to the inpatient rehabilitation unit at [facility] for further therapy. It is also noted that she reportedly fell while at [place]. She complained of left knee pain. Radiographs obtained here in [place] revealed degenerative changes only and no fracture. 07/28/17 14:11 07/28/17 14:13 Hospital Course This is a general summary of the patient's hospital course. For more details refer to the complete medical record. Ms. Hercules was admitted to the acute inpatient rehabilitation unit at [facility] for an intensive individualized program of occupational therapy, speech therapy, physical therapy, dietary management, 24 rehabilitation nursing and physician oversight. She had several issues which were monitored and managed as follows: 1. Critical illness myopathy: She had evidence of proximal muscle weakness based on reduced ability to perform sit to stand and stand to sit maneuvers ( required moderate assistance for these). She had been hospitalized for a significant length of time and had been treated for a critical illness/severe sepsis including pneumonia. Physical therapy and occupational therapy worked with the patient with results as noted below. By the time of dismissal she had improved. 2. Acute hypoxemic respiratory failure: She had evidence of increased oxygen requirements and required oxygen during the initial portion of her stay at [facility]. This did improve with time however. She refused to use oxygen at home and stated that she would resume smoking the moment she arrived back home. Overnight oximetry and exercise oximetry were performed and she did not qualify for home oxygen at this time. 3. Diabetes mellitus type 2: The patient had been on oral agents only. Her markedly elevated A1c was noted in [place] at 11%. She was managed with injectable insulin (long-acting as well as mealtime) at [facility]. Efforts were made to educate her in this regard but she declined to use the insulin at home and stated that she would only use oral agents at home. 4. Oropharyngeal dysphagia: She was noted to have oral pharyngeal dysphagia based on speech therapy evaluation. It was recommended that the patient consume a mechanically soft thickened liquid diet. She did tolerate this well during the time of her stay at the rehabilitation unit although refused to follow these precautions at home. We do feel as though she is at risk for aspiration if she does not follow these precautions. 5. Anemia: Hemoglobin was around 9 g percent. Stool was negative for occult blood. Iron studies were consistent with anemia of chronic disease. 6. Hypertension: Her blood pressures were monitored and were reasonably stable during the hospitalization. 7. Malnutrition: It is felt the patient does have her from a degree of protein calorie malnutrition and is recommended that she consumed 3 balanced meals daily. We recommend home health which was set up for the patient. In addition, referral was made to Adult Protective Services. 8. Left kidney lesion on CT scan in [place]: She has a 3.4 cm left renal lesion of uncertain etiology. This will require close monitoring and probable referral to urology for further evaluation. 9. Right lung non-calcified pulmonary nodules: She had 7-8 mm pulmonary nodules noted in the right lung on CT scan in [place]. It is recommended that these be reassessed with a repeat CT chest in about 3 months. From an occupational therapy standpoint, the patient had the following level of functioning noted: Eating: Modified independent upon admission and dismissal. Grooming: Standby assist on admission and independent upon dismissal. Bathing ability was minimal assistance initially and modified independent functioning upon dismissal. Upper body dressing required standby assistance upon admission and independent functioning upon dismissal. Lower body dressing was minimal assistance initially and standby assistance subsequently. Toileting assistance was contact-guard assistance initially and standby assistance upon dismissal. Toilet transfer assist was contact-guard initially and standby assist subsequent right. Bed/chair/wheelchair transfers were minimal assistance. It is noted patient had extremely poor safety awareness in general. Physical therapy saw the patient. She improved from contact-guard assist to modified independent functioning for bed/chair/wheelchair transfers. Toilet assistance was moderate assistance. Toilet transfer assist with standby assist. Car transfers were performed with standby assistance. She was able to ambulate with maximal assistance initially 135 feet with a front-wheeled walker. Subsequent she was able to ambulate 165 feet with modified independent functioning with a front-wheeled walker. She was able to climb 12 stairs initially with total assistance an overweight with standby assistance. CT of the left knee was performed demonstrating degenerative changes only. She seemed to do better with the use of regular doses of ibuprofen. She is dismissed in improved condition on 07/25/2017. No pain medications were provided at the time of dismissal. She'll follow-up with Dr. hector in [place]. Please see separate letter dictated to him in this regard. Time spent with patient: 25 - 35 minutes Discharge Plan - Med Rec/Dispo Referrals/Follow Up: Varun Stout MD [Physician] - (Dr. Benjy Stout on 07/31/17 at 9:45 am for Hosp. follow-up. [phone] [facility] [address] [place] [id number]) Lisa Instructions: Type 2 Diabetes in Adults (GEN), Fall Prevention for Older Adults (GEN) Prescriptions: New Ascorbic Acid [Vitamin C] 500 mg PO DAILY tablet Cholecalciferol [Vit. D-3] 2,000 unit PO DAILY tablet Ferrous Sulfate 325 mg PO WB #30 tab Metformin [Glucophage] 850 mg PO BIDWM #60 tab Continue Acetaminophen 650 mg PO Q6H PRN PRN Reason: Pain Carvedilol [Coreg] 1 tab PO BIDWM #30 tab Lisinopril [Zestril] 40 mg PO DAILY #30 tab Amlodipine [Norvasc] 10 mg PO DAILY #30 tab Furosemide [Lasix] 1 tab PO DAILY #30 tab Changed Potassium Chloride [K-Dur] 1.5 tab PO WB #45 tab Discontinued Guaifenesin/Pseudoephedrne HCl [Mucinex D ER Tablet] 1 each PO Q12H Nicotine Patch [Nicoderm] 14 mg TD DAILY Insulin Lispro [Humalog] 0 unit SQ SS PRN PRN Reason: Hyperglycemia Insulin Lispro [Humalog] 10 unit SQ TIDWM Insulin Detemir [Levemir] 15 unit SQ HS Discharge Instructions/Outpatient Orders: BMP - Basic Metabolic - AMS Time Frame: 5 Days, Location: Determined By Patient - Disposition 86 Home Health Service - Dismissal Complete Discharge Instructions are:: Incomplete
== END 2017-07-25 15:20 | disposition home health service (06) | DRG 91 ==
PROVIDERS: ADMIT Internal Medicine; ATTEND Internal Medicine